=== PATIENT | male | born 1980 | race Caucasian/White ===

== ENCOUNTER 2018-05-18 21:24 | Emergency (ER) | payer MEDICAID ==
--- NOTE | 2018-05-18 21:28 | EDPHY ---
H & P - Medical/Surgical History Hx Asthma: No Hx Chronic Respiratory Disease: No Hx Diabetes: No Hx Cardiac Disease: No Hx Renal Disease: No Hx Cirrhosis: No Hx Alcoholism: Yes Hx HIV/AIDS: No Hx Splenectomy or Spleen Trauma: No Other PMH: medical depression. surgery none - Social History Smoking Status: Current every day smoker Time Seen by Provider: 05/18/18 21:27 HPI/ROS: CHIEF COMPLAINT: Suspected alcohol abuse HISTORY OF PRESENT ILLNESS: 37 year old homeless male arrives via ambulance accompanied by police for suspected alcohol abuse. Patient unable to ambulate without assistance. No reports of trauma or assault. No fall from height. No structures of height near patient. REVIEW OF SYSTEMS: 10 systems reviewed and negative with the exception of the elements mentioned in the history of present illness PAST MEDICAL/SURGICAL HISTORY: no anticoagulant use, no relevant medical/ surgical history SOCIAL HISTORY: Positive for witnessed and self disclosed alcohol use PHYSICAL EXAM 1) GENERAL: untidy, poorly kept, foul smelling, alert and oriented. Appears to be in no acute distress. Answering questions appropriately.Smells of alcohol. 2) HEAD: Normocephalic, atraumatic 3) HEENT: Pupils equal, round, reactive to light bilaterally. Negative Horners. Nasopharynx, oropharynx, clear. No deformity or angulation of nose. No septal hematoma. No rhinorrhea. No oral trauma. Ears bilaterally with normal tympanic membranes. No hemotympanum. No fluid or blood in the external auditory canal. No raccoon eyes. No Sotelo sign. Teeth are normally aligned with no gross malocclusion, TMJ bilaterally nontender, facial bones nontender including the zygomatic arch, maxilla mandible. 4) NECK: No cervical collar is on. Posterior cervical spine is nontender, no stepoff, no effusion. Full range of motion which does not elicit any midline cervical spine pain, no posterior midline tenderness, no step-off. 5) LUNGS: Clear to auscultation bilaterally, no wheezes, no rhonchi, no retractions. No obvious signs of trauma. No chest wall pain. No flaring, no grunting. Moving symmetrically. No crepitus. 6) HEART: [Regular rate and rhythm, 7) ABDOMEN: No guarding, no rebound, no focal tenderness, no peritoneal signs, no signs of trauma, no ecchymosis 8) MUSCULOSKELETAL: Moving all extremities, no focal areas of tenderness, no obvious trauma. 9) BACK: No midline vertebral tenderness, no fluctuance, no step-off, no obvious trauma, no visual or palpable abnormality. 10) SKIN: No laceration. No abrasion DIFFERENTIAL DIAGNOSIS: In no particular orderincluding but not limited to hypoglycemia, infectious process, electrolyte abnormality, head injury and intoxicants. (Swati Braga) Constitutional: Initial Vital Signs Temperature (C) 36.7 C 05/18/18 21:30 Heart Rate 90 05/18/18 21:30 Respiratory Rate 18 05/18/18 21:30 Blood Pressure 122/88 H 05/18/18 21:30 O2 Sat (%) 94 05/18/18 21:30 O2 Delivery Mode Room Air Allergies/Adverse Reactions: No Known Allergies Allergy (Verified 05/18/18 21:33) Home Medications: Medication Instructions Recorded NK [No Known Home Meds] 02/28/16 Medical Decision Making ED Course/Re-evaluation: 11:23 p.m.: Patient awake alert oriented person place time events, clear speech pattern, ambulating without assistance. [facility] Care of patient under supervision of secondary supervising physician Dr Mercado . (Swati Braga ) This patient was evaluated and managed by the physician front office assistant. I approve of the plan of care. I am the secondary supervising physician. (Birgit Mercado ) - Data Points Medications Given: Discontinued Medications Chlordiazepoxide (Librium 25 Mg [facility]#6) [facility] Stop: 05/18/18 23:03 Last Admin: 05/18/18 23:35 Dose: 1 btl Departure - Departure Disposition: Home, Routine, Self-Care Clinical Impression: Alcohol abuse Condition: Good Instructions: Chlordiazepoxide (By mouth), Abuse of Alcohol (ED) Additional Instructions: Please exercise moderation with alcohol Referrals: [facility] [Outside] - 1 day without fail
[2018-05-18] MEDS ORDERED: CHLORDIAZEPOXIDE 25MG PREPK#6 BTL TAKEHOME ONE (23:02)
[2018-05-18 23:34] VITALS: BP 138/89
== END 2018-05-18 23:34 | disposition home or self-care (01) ==
LOC: EDUNIT#
DX: F10.10 Alcohol abuse, uncomplicated (principal)